=== PATIENT | female | born 1980 | race Caucasian/White ===

== ENCOUNTER 2018-09-25 12:38 | Outpatient (CLI) | payer BC ==
[~2018-09-25 12:38] MED LIST: Gadobenate Dimeglumine 529 MG/1 ML (20ML VIAL) ONE
--- NOTE | 2018-09-25 15:36 | MRI ---
MRI BRAIN WITH AND WITHOUT CONTRAST: INDICATIONS: Skin paresthesias. Bilateral hand numbness. Decreased fine motor skills. TECHNIQUE: Multiplanar, multisequential imaging of the brain obtained. Post contrast images are obtained after administering 10 mL of MultiHance IV. FINDINGS: The ventricles have normal size and position. No evidence of restricted diffusion. No mass or edema is seen. No white matter abnormality. No abnormal enhancement identified. The paranasal sinuses a nd mastoids appear clear. The cerebral arteries show expected flow voids. IMPRESSION: Unremarkable MRI brain. POS: [facility]
== END 2018-09-25 12:39 | disposition home or self-care (01) ==
LOC: SCSMRI 12:38
PROVIDERS: ATTEND Obstetrics & Gynecology
DX: R20.2 Paresthesia of skin (principal); R29.898 Other symptoms and signs involving the musculoskeletal system
CPT/HCPCS: 70553; A9577